=== PATIENT | male | born 1970 | race Caucasian/White ===

== ENCOUNTER 2022-02-11 14:00 | Outpatient (RCR) | payer OTHER, SELFPAY ==
--- NOTE | 2021-12-10 14:45 | PTOPEVAL ---
PHYSICAL THERAPY EVALUATION and PLAN OF CARE Thank you for referring Jose J Amaro to [facility].? The patient is scheduled to be seen for therapy? 2x/week for 4 weeks. Please review, sign, date and return this plan of care TIM. I agree with and certify that the following plan of care is medically necessary. Referring Physician Date Evaluation Diagnosis parkinson's disease Onset 25 years Subjective Information has imbalance and gait Query Text:As Reported By Patient/ abnormality from symptoms Family associated with Parkinson's Disease. He was diagnosed 25 years ago with initial symptoms of rigidity in left side and a slight tremor. It has progressed. He now has a brain stimulator. He has signficant dyskindesias. States that he is interested in LSVT BIG program with modifications. States that in the monrings he stumbles a lot more because the medication has not kicked in yet. His left side will freeze . His last fall was a month ago as he was walking around a table. States that he has to take stairs alot and he has to have a hand on the rail or he has problems. Carrying things up and down stairs is difficult. goals: improve balance and posture, improve dexterity when using a mouse and using zippers and buttons, stair climbing and carrying heavier items Pain Assessment Timing of Pain Assessment Timing of Pain Assessment Assessment Self Report Self Report Pain Level 0 Pain Score Pain Score 0: Self Report Cervical and Lumbar ROM Cervical ROM Reason Not Measured WFL/Left,WFL/Right Cervical ROM Comments limited cervical extension due to severely limited mobility of upper thoracic spine Lumbar ROM Reason Not Measured WFL/Left,WFL/Right Upper Extremity Range of Motion General Upper Extremity Range of Motion Reason Not Measured WFL/Left,WFL/Right Lower Extremity Range of Motion General Lower Extremity Range of Motion Reason Not Measured
--- NOTE | 2021-12-17 14:07 | STOPEVAL ---
Thank you for referring Jose J Amaro to [facility].? The patient is scheduled to be seen for therapy? 2x/week for 4 weeks. Please review, sign, date and return this plan of care TIM. I agree with and certify that the following plan of care is medically necessary. Referring Physician Date Attending Provider: Sreekanth Rodriguez Therapy Assessment Status Assessment Status Assessment Status Evaluation Outpatient Past Medical History Past Medical History Source of Past Medical History Patient Neurological History Hx Parkinson's Disease Yes: Diagnosed in 1994 Evaluation Information Problem Diagnosis Dysarthria Onset 1994 Cause Parkinson's Disease Subjective Information Patient reports he was Query Text:As Reported By Patient/ diagnosed with Parkinson's Family disease when he was 24 years old. He and his 's sister noticed that his left arm was not swinging as expected. He was then diagnosed with PD. He stated that he had Deep Brain Stem implants placed in 2002. He reported that prior to that he could hardly walk. He reported that he felt his speech was fine at that time. Patient stated that he had LSVT-LOUD treatment in 2008 and he felt it was very helpful at that time. He stated that he felt that his speech intelligiblity has gone downhill gradually but he has been frustrated with it for several years. Patient stated that his had been able to understand him until recently but now even she is unable to understand him. Patient reported that on an average day, his now understands him on the first attempt, rarely. Today patient described his speech as: *too fast *too slurred *not loud enough *words tend to run together Patient was asked about his swallowing. He stated that I
--- NOTE | 2022-01-14 15:34 | PTOPEVAL ---
PHYSICAL THERAPY DISCHARGE NOTE Thank you for referring Jose J Amaro to [facility]. Please review, sign, date and return this plan of care TIM. I agree with and certify that the following plan of care is medically necessary. Referring Physician Date Diagnosis Parkinson's Disease Onset 1995 Cause Parkinson's Disease Subjective Information states that he feels like his Query Text:As Reported By Patient/ balance in better. He did fall Family because he slipped off the edge of a concrete patio - did not get hurt. States that stairs feels better. Pain Score Pain Score 0: Self Report Balance Assessment George Balance Assessment 56/56 Timed Up and Go Test (TUG) (Seconds) 5 5times sit to stand: 9.58seconds Functional gait assessment: 28 Gait Assessment 6 Minute Walk Total Distance (feet) 1,573 6 Minute Walk Gait Speed Score (feet/ 4.36 second) Stair Climbing Assessment Stair Climbing Assessment Stair Climbing Assistive Devices None Technique Alternating Steps Stair Climbing Direction Both Up and Down Stair Climbing Ability Standby Assistance Stair Climbing Comments carried two 8lb grocery bags up stairs independently PT Clinical Summary Jose J is a 51 yo male with parkinson's disease. He has participated in physical therapy with modified LSVT program. He is demonstrating normal balance and gait speed and even demonstrating improved control over diskinesias today. I recommend d/c from PT with HEP.
--- NOTE | 2022-01-14 15:34 | STOPEVAL ---
SPEECH THERAPY RE-EVALUATION AND PROGRESS NOTE Thank you for referring Jose J Amaro to [facility].? The patient was re-evaluated today and improvements in the area of vocal loudness and speech sound precision are noted. He will continue in direct Speech Therapy 2x/week for 4 weeks to further improve vocal communication skills. Please review, sign, date and return this plan of care TIM. I agree with and certify that the following plan of care is medically necessary. Referring Physician Date Attending Provider: PHYSICIAN NOT ON STAFF Therapy Assessment Status Assessment Status Assessment Status Progress Outpatient Past Medical History Past Medical History Source of Past Medical History Patient Neurological History Hx Parkinson's Disease Yes: Diagnosed in 1994 Pain Assessment Timing of Pain Assessment Timing of Pain Assessment Pre-Treatment Self Report Self Report Pain Level 0 Pain Score Pain Score 0: Self Report Dysarthria Evaluation Oral-Motor Assessment Tip Diodochokinesis Accuracy Imprecise,Rhythm Irregular,Rate Normal Back Diodochokinesis Accuracy Imprecise,Rhythm Irregular,Rate Normal Alternating Tip/Back Diodochokinesis Accuracy Imprecise,Rhythm Irregular,Rate Slow Tongue Comments /b/: 26/5 seconds, no significant imprecision, minimal rhythm issues /p/: 25/5 seconds, no significant imprecision, minimal rhythm issues /t/: 23/5 seconds, minimal imprecision, mild rhythm issues /l/: 25/5 seconds, no significant imprecision, minimal rhythm issues /k/: 19/5 seconds, no significant imprecision, minimal rhythm issues All of these productions were considered slower than initial eval however of note is improved precision and rhythm as a result. Phonation Assessment Voice Loudness Too Soft Vocal Quality Normal Resonance Pitch Pitch Range WFL Respiratory Support Assessment Type of Breathing Pattern Abdominal Vocal Prolongation (Seconds) 8 Intelligibility Monosyllabic Word Production 100 Intelligibility (%) Bisyllabic Word Production 100 Intelligibility (%) Polysyllabic Word Production 100 Intelligibility (%) Phrase Production Intelligibility (%) 100 Sentence Level Speech Intelligibility (% 100 ) Consistent Articulation Errors No Voice Evaluation Intelligibility Single Word Production (% 100 Intelligibility) Sentence Level Speech (% Intelligibility 100 ) Conversational Level Speech (% 70 Intelligibility) Intelligibility Comments Conversational intelligibility
--- NOTE | 2022-02-13 16:45 | STOPEVAL ---
SPEECH THERAPY DISCHARGE SUMMARY THank you for referring Jose J Amaro to [facility].? I understand that patient is being discharged from skilled Speech Therapy at this time. Referring Physician Date Attending Provider: PHYSICIAN NOT ON STAFF Therapy Assessment Status Assessment Status Assessment Status Progress ST Clinical Summary Clinical Summary ST Clinical Summary SPEECH THERAPY DISCHARGE SUMMARY Patient was seen for an initial Speech Therapy evaluation on 12/17/21 with Speech Therapy continuing twice weekly for a total of 16 sessions focusing on improving vocal loudness, speech sound precision and decreasing rate of speech. Patient eventually exhibited overall good vocal loudness and speech sound precision while rate of speech was slow and methodical however as he spoke more [id number] rate of speech increased and speech sound precision decreased causing therapist to not totally understand his spontaneous speech. Patient voiced good awareness of his deficits, when occuring, however he also did not seem to have great control to avoid the imprecise, quick productions. Therapist provided patient with 5 posters with simple reminders including SPEAK SLOWLY, SPEAK LOUDLY, SPEAK CLEARLY and he did state that he placed these posters around his house. At time of discharge he stated he had participated in a zoom call this morning and his peers understood well and he had very few episodes of unintelligible speech. Today, the patient reports that he feels his speech is better than a month ago. The techniques have helped him
== END 2022-02-14 11:07 | disposition home or self-care (01) ==
LOC: ANHST 14:00
PROVIDERS: PCP Family Medicine
DX: G20 Parkinson's disease (principal)
CPT/HCPCS: 92507; 92522; 92526; 92610; 97110; 97112; 97163; 97530

== ENCOUNTER 2023-10-30 08:00 | Outpatient (CLI) | payer OTHER, SELFPAY ==
[2023-10-30 12:16] LABS: Basophils Percent Auto 0.4 % (0.2-1.2); Eosinophils Absolute Auto 0.1 K/mm3 (0-0.3); Eosinophils Percent Auto 2.3 % (0-4.4); Hematocrit 46.7 % (42.0-52.0); Hemoglobin 14.7 g/dL (14.0-18.0); Immature Granulocyte Absolute 0.01 K/mm3 (0.00-0.031); Immature Granulocyte Percent A 0.2 % (0-0.5); Lymphocytes Absolute Auto 1.35 K/mm3 (0.9-3.2); Lymphocytes Percent Auto 28.1 % (18.3-44.2); Mean Corpuscular HGB Conc 31.5 g/dl (32-36); Mean Corpuscular Hemoglobin 29.8 pg (26-34); Mean Corpuscular Volume 94.7 fl (80-100); Mean Platelet Volume 10.5 fl (7.4-10.4); Monocytes Absolute Auto 0.5 K/mm3 (0.1-0.6); Neutrophils Absolute Auto 2.8 K/mm3 (1.3-6.7); Platelet Count Result 180 k/mm3 (150-375); Red Blood Count 4.93 M/mm3 (4.6-6.20); Red Cell Distribution Width 14.2 % (11.5-14.5); White Blood Count 4.8 K/mm3 (4.5-10.0)
[2023-10-30 12:22] LABS: Alanine Aminotransferase 36 U/L (6-50); Albumin Level 4.3 g/dL (3.5-5.1); Alkaline Phosphatase 75 U/L (38-126); Anion Gap 4 mmol/L (8-16); Aspartate Amino Transferase 43 U/L (17-59); Bilirubin,Total 0.8 mg/dL (0.2-1.3); Blood Urea Nitrogen 25 mg/dL (9-20); Calcium 9.5 mg/dL (8.4-10.2); Carbon Dioxide 34 mmol/L (22-30); Chloride 102 mmol/L (98-107); Cholesterol 208 mg/dL (0-200); Estimated Glomerular Filt Rate > 60; Glucose 87 mg/dL (65-110); HDL Direct 53 mg/dL; Potassium 4.6 mmol/L (3.4-5.0); Sodium 140 mmol/L (137-145); Triglycerides 49 mg/dL (<150)
[2023-10-30 12:33] LABS: LDL Cholesterol Direct 128 mg/dL
[2023-10-30 12:49] LABS: Prostate Specific Antigen 0.8 ng/mL (< OR = 4.0)
[2023-10-30 13:43] LABS: Vitamin D 25 Hydroxy 32.2 ng/mL
[2023-11-05 11:42] LABS: Testosterone Free 40.5 pg/mL (35.0-155.0); Testosterone Total 324 ng/dL (250-1100)
== END 2023-10-30 08:01 | disposition home or self-care (01) ==
LOC: ANHGOSHLAB 08:01
PROVIDERS: PCP Family Medicine; Visit Provider Family Medicine
DX: Z13.29 Encounter for screening for other suspected endocrine disorder (principal); E55.9 Vitamin D deficiency, unspecified; Z13.228 Encounter for screening for other metabolic disorders; Z13.220 Encounter for screening for lipoid disorders; R53.83 Other fatigue; Z12.5 Encounter for screening for malignant neoplasm of prostate
CPT/HCPCS: 36415; 80053; 80061; 82306; 84153; 84402; 84403; 84443; 85025; G0103